=== PATIENT | male | born 1970 ===

== ENCOUNTER 2024-10-01 17:49 | Emergency (ER) | payer SELFPAY ==
[2024-10-02] MEDS: Ketorolac 30 MG/ML SDV IM ONE (00:16)
== END 2024-10-02 00:37 | disposition home or self-care (01) ==
LOC: JD.ED 17:49
DX: S43.402A Unspecified sprain of left shoulder joint, initial encounter (principal); W01.0XXA Fall on same level from slipping, tripping and stumbling without subsequent striking against object, initial encounter; Y99.0 Civilian activity done for income or pay
CPT/HCPCS: 73030; 96372; 99283; J1885